=== PATIENT | female | born 1995 | race African-American/Black ===

== ENCOUNTER 2017-08-10 21:11 | Emergency (ER) | payer MEDICAID ==
[~2017-08-10] VITALS: Ht 162.6 cm; Wt 46.3 kg
[~2017-08-10 21:11] MED LIST: AMOX500T3; IBUP800T41
[2017-08-10 21:17] VITALS: BP 139/75
== END 2017-08-10 22:33 | disposition left against medical advice (07) ==
LOC: ER 21:11
DX: R51 Headache (principal); Z53.21 Procedure and treatment not carried out due to patient leaving prior to being seen by health care provider

== ENCOUNTER 2018-02-14 11:30 | Observation (INO) | payer MEDICAID ==
[~2018-02-14] VITALS: Ht 30.5 cm; Wt 0.5 kg
[2018-02-14] MEDS ORDERED: BETAMETHASONE ACET (6MG/ML) 5ML VIAL IM SCH (12:30)
[2018-02-14 12:31] LABS: Basophils # (auto) 0 uL; Basophils % (auto) 0.5 % (0.0-2.0); Eosinophils # (auto) 0.1 uL; Eosinophils % (auto) 0.8 % (0.0-7.0); Hemoglobin 11.1 g/dL (12.2-16.2); Lymphocytes # (auto) 1.7 uL; Lymphocytes % (auto) 19.6 % (10.0-50.0); Mean Corpuscular Hemoglobin 30.6 pg (28.0-32.0); Mean Corpuscular Hgb Conc. 34.5 g/dL (32.0-36.0); Mean Corpuscular Volume 88.7 fL (80.0-100.0); Monocytes # (auto) 0.8 uL; Monocytes % (auto) 9.4 % (0.0-12.0); Neutrophils # (auto) 5.9 uL; Neutrophils % (auto) 69.7 % (37.0-80.0); Nucleated Red Blood Cells % 0.2 %; Platelet Count (auto) 188 10^3/uL (140-450); Red Blood Cells 3.61 10^6/uL (4.0-5.20); Red Cell Distribution Width 16.6 % (11.8-14.3); White Blood Cell 8.5 10^3/uL (4.4-10.8)
[2018-02-14 12:37] LABS: Urine Bacteria NONE SEEN /hpf (None Seen); Urine Blood 1+ /uL (Negative); Urine Specific Gravity 1.014 (1.001-1.035); Urine WBC 4 /hpf (0 - 5)
[2018-02-14] MEDS ORDERED: BETAMETHASONE ACET (6MG/ML) 5ML VIAL ONE (12:44)
[2018-02-14] MEDS ORDERED: TERBUTALINE SULFATE 1 MG/ML 1ML VIAL SC ONE (12:44)
[2018-02-14] MEDS ORDERED: TERBUTALINE SULFATE 1 MG/ML 1ML VIAL SC SCH (12:45)
[2018-02-14 12:57] LABS: Albumin 2.4 g/dL (3.4-5.0); BUN/Creatinine Ratio 11.9; Bilirubin, Total 0.3 mg/dL (0.2-1.0); Calcium 8.9 mg/dL (8.5-10.1); Potassium 3.4 mmol/L (3.5-5.1); Total Protein 6.5 g/dL (6.4-8.2); Uric Acid 5.3 mg/dL (2.6-6.0)
[2018-02-14 13:03] LABS: INR 0.84 (0.9-1.15); Prothrombin Time 9.1 sec (9.27-12.13)
[2018-02-14] MEDS ORDERED: DOXY10TA OR (14:23)
[2018-02-14] MEDS ORDERED: PREN-153 PO (14:23)
[2018-02-14] MEDS ORDERED: FERR-20 PO (14:24)
[2018-02-14] MEDS ORDERED: NIFEdipine 10 MG CAP PO ONE (14:30)
== END 2018-02-14 15:30 | disposition home or self-care (01) | DRG 955 ==
LOC: LDRP 11:30
PROVIDERS: ADMIT Obstetrics & Gynecology; ATTEND Obstetrics & Gynecology
DX: O13.9 Gestational [pregnancy-induced] hypertension without significant proteinuria, unspecified trimester (principal); Z3A.00 Weeks of gestation of pregnancy not specified
CPT/HCPCS: 36415; 59025; 76805; 76818; 80053; 81001; 81002; 84550; 85025; 85610; 85730; 96372; G0378; J0702; J3105

== ENCOUNTER 2018-02-15 13:00 | Inpatient (IN) | payer MEDICAID ==
[~2018-02-15] VITALS: Ht 30.5 cm; Wt 0.5 kg
[~2018-02-15 13:00] MED LIST changes: -AMOX500T3; +DOXY10TA OR; +FERR-20 PO; -IBUP800T41; +PREN-153 PO
[2018-02-15] MEDS ORDERED: NIFEdipine 10 MG CAP PO ONE (13:30)
[2018-02-15] MEDS ORDERED: BETAMETHASONE ACET (6MG/ML) 5ML VIAL IM ONE (13:30)
[2018-02-15 14:07] LABS: Basophils # (auto) 0 uL; Basophils % (auto) 0.2 % (0.0-2.0); Eosinophils # (auto) 0 uL; Hematocrit 28.4 % (36.0-46.0); Hemoglobin 9.6 g/dL (12.2-16.2); Lymphocytes # (auto) 1.3 uL; Lymphocytes % (auto) 11.5 % (10.0-50.0); Mean Corpuscular Hemoglobin 29.8 pg (28.0-32.0); Mean Corpuscular Hgb Conc. 33.6 g/dL (32.0-36.0); Mean Corpuscular Volume 88.7 fL (80.0-100.0); Neutrophils # (auto) 9.1 uL; Neutrophils % (auto) 79.3 % (37.0-80.0); Nucleated Red Blood Cells % 0.3 %; Platelet Count (auto) 182 10^3/uL (140-450); Red Blood Cells 3.21 10^6/uL (4.0-5.20); Red Cell Distribution Width 16.6 % (11.8-14.3); White Blood Cell 11.4 10^3/uL (4.4-10.8)
[2018-02-15 14:27] LABS: Albumin 2.3 g/dL (3.4-5.0); BUN/Creatinine Ratio 9.5; Bilirubin, Total 0.2 mg/dL (0.2-1.0); Calcium 8.4 mg/dL (8.5-10.1); INR 0.87 (0.9-1.15); Partial Thromboplastin Time 27.4 sec (23.78-33.04); Potassium 3.5 mmol/L (3.5-5.1); Prothrombin Time 9.4 sec (9.27-12.13); Uric Acid 6.6 mg/dL (2.6-6.0)
[2018-02-15] MEDS ORDERED: NALBUPHINE HCL 10 MG/1ml INJECTION IV PRN (14:30)
[2018-02-15] MEDS ORDERED: WITCH HAZEL-GLYCERIN PAD TOP PRN (14:30)
[2018-02-15] MEDS ORDERED: LIDOCAINE 2% (LOCAL ANESTH.) PF 5ml SDV ID ONE (14:30)
[2018-02-15] MEDS ORDERED: DERMOPLAST 60ML BOTTLE TOP PRN (14:30)
[2018-02-15] MEDS ORDERED: PHISODERM TOP SOLN 240ML BTL TOP PRN (14:30)
[2018-02-15] MEDS ORDERED: METHYLERGONOVINE MALEATE 0.2 MG/ML AMP IM PRN (14:30)
[2018-02-15] MEDS ORDERED: CARBOPROST TROMETHAMINE 250 MCG/1ML VIAL IM PRN (14:30)
[2018-02-15 14:31] LABS: Urine Bacteria FEW /hpf (None Seen); Urine Blood 1+ /uL (Negative); Urine Mucus FEW (None Seen); Urine Specific Gravity 1.017 (1.001-1.035); Urine WBC 10 /hpf (0 - 5)
[2018-02-15] MEDS ORDERED: MAGNESIUM SULFATE 100 ML IV ONE (14:45)
[2018-02-15] MEDS ORDERED: MAGNESIUM SULFATE 40MG/ML 1,000 ML IV ONE (14:51)
[2018-02-15] MEDS ORDERED: PENICILLIN G POT 5MIL/D5 50ML 50 ML IV ONE (15:15)
[2018-02-15] MEDS: MAGNESIUM SULFATE 40MG/ML 1,000 ML IV SCH (15:20)
[2018-02-15] MEDS: SODIUM CHL 0.9% IV SCH ×2 (19:15→23:25)
[2018-02-15] MEDS: PENICILLIN POTASSIUM IV SCH ×2 (19:15→23:25)
[2018-02-15] MEDS ORDERED: hydrALAZINE HCL 20 MG/ML VL ONE (19:53)
[2018-02-15] MEDS: hydrALAZINE HCL 20 MG/ML VL IV PRN (19:57)
[2018-02-15] MEDS ORDERED: NIFEdipine 10 MG CAP ONE (21:00)
[2018-02-15] MEDS: NIFEdipine 10 MG CAP PO SCH ×2 (21:04→22:00)
[2018-02-15] MEDS: LACTATED RINGER'S 1,000 ML IV SCH (23:13)
[2018-02-15] MEDS ORDERED: LACT. RINGERS/OXYTOCIN 20UNITS 1,000 ML IV SCH (23:13)
[2018-02-16] VITALS (9 sets, daily range): BP systolic 137–159; BP diastolic 88–101
[2018-02-16] MEDS ORDERED: fentaNYL CITRATE 100 MCG/2 ML VL ONE ×3 (00:29→16:02)
[2018-02-16] MEDS ORDERED: NALOXONE HCL 0.4 MG/ML VIAL IV ONE ×2 (00:30→02:00)
[2018-02-16] MEDS ORDERED: fentaNYL CITRATE 100 MCG/2 ML VL IV ONE ×2 (00:30→02:00)
[2018-02-16] MEDS ORDERED: ePHEDrine SULFATE 50 MG/ML AMP IV ONE ×2 (00:30→02:00)
[2018-02-16] MEDS ORDERED: fentaNYL W ROPIVACAINE 150 ML EPI ONE (00:30)
[2018-02-16] MEDS ORDERED: LIDOCAINE HCL 2 %PF INJ 10ML AMP IJ ONE ×2 (00:30→15:48)
[2018-02-16] MEDS ORDERED: fentaNYL W ROPIVACAINE 150 ML EPI SCH ×2 (00:30→02:00)
[2018-02-16] MEDS ORDERED: LIDOCAINE 2% (LOCAL ANESTH.) PF 5ml SDV ONE (00:31)
[2018-02-16] MEDS ORDERED: hydrALAZINE HCL 20 MG/ML VL ONE (00:42)
[2018-02-16] MEDS ORDERED: SODIUM CHLORIDE 0.9% 500 ML IV PRN (01:51)
[2018-02-16] MEDS: SODIUM CHL 0.9% IV SCH ×3 (03:20→12:30)
[2018-02-16] MEDS: PENICILLIN POTASSIUM IV SCH ×3 (03:20→12:30)
[2018-02-16] MEDS: NIFEdipine 10 MG CAP PO SCH ×3 (06:22→22:01)
[2018-02-16] MEDS: LACTATED RINGER'S 1,000 ML IV SCH ×2 (07:13→19:15)
[2018-02-16] MEDS: MAGNESIUM SULFATE 40MG/ML 1,000 ML IV SCH (10:42)
[2018-02-16] MEDS: hydrALAZINE HCL 20 MG/ML VL IV PRN (11:24)
[2018-02-16] MEDS ORDERED: PHENYLEPHRINE HCL 10 MG/ML VL ONE (16:02)
[2018-02-16] MEDS ORDERED: ceFAZolin 1GM VL ONE (16:02)
[2018-02-16] MEDS ORDERED: ePHEDrine SULFATE 50 MG/ML AMP ONE (16:02)
[2018-02-16] MEDS ORDERED: OXYTOCIN 10 UNIT/ML 10ML VIAL ONE (16:03)
[2018-02-16] MEDS ORDERED: MORPHINE SULF INJ 2 MG/ML SYRINGE 1ML ONE ×3 (16:42→17:20)
[2018-02-16] MEDS: MORPHINE SULF INJ 2 MG/ML SYRINGE 1ML IV PRN ×4 (16:45→18:00)
[2018-02-16] MEDS ORDERED: ONDANSETRON HCL 4 MG/2 ML VIAL IV PRN (16:45)
[2018-02-16] MEDS ORDERED: HYDROmorphone HCL 2 MG/ML VL IV PRN (16:45)
[2018-02-16] MEDS ORDERED: METOCLOPRAMIDE HCL 5MG/ml INJ 2ml VIAL IV ONE (17:15)
[2018-02-16] MEDS ORDERED: NALOXONE HCL 0.4 MG/ML VIAL IV PRN (17:15)
[2018-02-16] MEDS ORDERED: ONDANSETRON HCL 4 MG/2 ML VIAL IV ONE (17:15)
[2018-02-16] MEDS ORDERED: ALBUTEROL SULF 2.5 MG/0.5ML(0.5%) NEB SOLN NEB ONE (17:45)
[2018-02-16] MEDS ORDERED: ALBUTEROL SULF 2.5 MG/0.5ML(0.5%) NEB SOLN ONE (17:49)
[2018-02-16] MEDS: KETOROLAC TROMETH 30 MG/ML 1ML VIAL IV SCH ×2 (18:00→23:53)
[2018-02-16] MEDS ORDERED: FUROSEMIDE 20 MG/2 ML VIAL IV ONE ×2 (18:10→20:00)
[2018-02-16] MEDS ORDERED: FUROSEMIDE 20 MG/2 ML VIAL ONE (18:12)
[2018-02-16] MEDS: ALBUTEROL SULF 2.5 MG/0.5ML(0.5%) NEB SOLN NEB SCH (22:00)
[2018-02-16] MEDS: ceFAZolin 1GM/100ML 50 ML IV SCH (23:53)
[2018-02-17] MEDS: LACTATED RINGER'S 1,000 ML IV SCH ×3 (00:44→16:44)
[2018-02-17] MEDS: ALBUTEROL SULF 2.5 MG/0.5ML(0.5%) NEB SOLN NEB SCH ×2 (02:00→18:00)
[2018-02-17 03:00] VITALS: BP 122/75
[2018-02-17] MEDS: NIFEdipine 10 MG CAP PO SCH (06:01)
[2018-02-17] MEDS: KETOROLAC TROMETH 30 MG/ML 1ML VIAL IV SCH (06:01)
[2018-02-17 06:40] VITALS: BP 119/77
[2018-02-17 07:05] LABS: Basophils # (auto) 0 uL; Basophils % (auto) 0.2 % (0.0-2.0); Eosinophils # (auto) 0 uL; Eosinophils % (auto) 0.1 % (0.0-7.0); Hematocrit 28.7 % (36.0-46.0); Hemoglobin 9.8 g/dL (12.2-16.2); Lymphocytes % (auto) 15.1 % (10.0-50.0); Mean Corpuscular Hemoglobin 30.5 pg (28.0-32.0); Mean Corpuscular Volume 89.8 fL (80.0-100.0); Monocytes % (auto) 7.7 % (0.0-12.0); Neutrophils # (auto) 10.2 uL; Neutrophils % (auto) 76.9 % (37.0-80.0); Nucleated Red Blood Cells % 0.1 %; Platelet Count (auto) 189 10^3/uL (140-450); Red Cell Distribution Width 16.7 % (11.8-14.3); White Blood Cell 13.3 10^3/uL (4.4-10.8)
[2018-02-17] MEDS: ceFAZolin 1GM/100ML 50 ML IV SCH ×2 (07:50→16:00)
[2018-02-17] MEDS ORDERED: HYDROcodone-ACET 5/325MG TAB PO PRN ×2 (08:00)
[2018-02-17] MEDS ORDERED: BISACODYL 10 MG RECT SUPP PR PRN (08:00)
[2018-02-17] MEDS: FERROUS SULFATE 325 MG TAB PO SCH ×2 (10:10→22:22)
[2018-02-17] MEDS: DOCUSATE CALCIUM 240 MG CAP PO SCH (10:10)
[2018-02-17] MEDS: DOCUSATE SOD 100 MG CAP PO SCH ×2 (10:10→22:22)
[2018-02-17 11:00] VITALS: BP 143/99
[2018-02-17 11:26] LABS: RPR Non Reactive (Non Reactive)
[2018-02-17] MEDS: SIMETHICONE 80 MG CHEWABLE TABLET PO SCH ×3 (11:52→22:22)
[2018-02-17] MEDS ORDERED: LABETALOL HCL 200 MG TAB ONE (11:57)
[2018-02-17] MEDS ORDERED: LABETALOL HCL 200 MG TAB PO ONE (12:00)
[2018-02-17] MEDS: IBUPROFEN 800 MG TAB PO PRN ×2 (14:51→23:25)
[2018-02-17 15:00] VITALS: BP 134/94
[2018-02-17 19:00] VITALS: BP 147/85
[2018-02-17] MEDS: LABETALOL HCL 200 MG TAB PO SCH (22:22)
[2018-02-17 22:30] VITALS: BP 155/95
[2018-02-18] MEDS: LACTATED RINGER'S 1,000 ML IV SCH (00:44)
[2018-02-18] MEDS: ALBUTEROL SULF 2.5 MG/0.5ML(0.5%) NEB SOLN NEB SCH ×4 (02:00→18:00)
[2018-02-18 03:00] VITALS: BP 155/78
[2018-02-18] MEDS: SIMETHICONE 80 MG CHEWABLE TABLET PO SCH ×4 (05:50→22:45)
[2018-02-18 07:10] VITALS: BP 144/90
[2018-02-18] MEDS: LABETALOL HCL 200 MG TAB PO SCH ×2 (09:47→22:55)
[2018-02-18] MEDS: DOCUSATE SOD 100 MG CAP PO SCH ×2 (09:47→22:45)
[2018-02-18] MEDS: FERROUS SULFATE 325 MG TAB PO SCH ×2 (09:47→22:45)
[2018-02-18] MEDS: DOCUSATE CALCIUM 240 MG CAP PO SCH (09:48)
[2018-02-18 10:47] VITALS: BP 155/95
[2018-02-18] MEDS: IBUPROFEN 800 MG TAB PO PRN (11:47)
[2018-02-18 15:00] VITALS: BP 145/90
[2018-02-18 18:41] VITALS: BP 155/93
[2018-02-18] MEDS ORDERED: LABETALOL HCL 200 MG TAB ONE (22:59)
[2018-02-18 23:00] VITALS: BP 150/98
[2018-02-19] MEDS: ALBUTEROL SULF 2.5 MG/0.5ML(0.5%) NEB SOLN NEB SCH ×3 (02:00→10:00)
[2018-02-19 02:21] VITALS: BP 150/87
[2018-02-19 03:00] VITALS: BP 150/97
[2018-02-19] MEDS: SIMETHICONE 80 MG CHEWABLE TABLET PO SCH (06:45)
[2018-02-19 07:00] VITALS: BP 160/99
[2018-02-19] MEDS: IBUPROFEN 800 MG TAB PO PRN (07:15)
[2018-02-19] MEDS: DOCUSATE SOD 100 MG CAP PO SCH (10:00)
[2018-02-19] MEDS: LABETALOL HCL 200 MG TAB PO SCH (10:00)
[2018-02-19] MEDS: DOCUSATE CALCIUM 240 MG CAP PO SCH (10:00)
[2018-02-19] MEDS: FERROUS SULFATE 325 MG TAB PO SCH (10:00)
[2018-02-19 11:00] VITALS: BP 125/82
== END 2018-02-19 11:10 | disposition home or self-care (01) | DRG 540 ==
LOC: OBSVTOIN 13:00 → LDRP 13:00
PROVIDERS: ADMIT Specialist; ATTEND Specialist
PROC: 10D00Z1 Extraction of Products of Conception, Low, Open Approach (ICD-10-PCS; 2018-02-16)
PROC: 4A0HXCZ Measurement of Products of Conception, Cardiac Rate, External Approach (ICD-10-PCS; principal; 2018-02-16 15:51)
DX: O14.94 Unspecified pre-eclampsia, complicating childbirth (principal); O60.14X0 Preterm labor third trimester with preterm delivery third trimester, not applicable or unspecified; O99.62 Diseases of the digestive system complicating childbirth; K21.9 Gastro-esophageal reflux disease without esophagitis; O13.4 Gestational [pregnancy-induced] hypertension without significant proteinuria, complicating childbirth; O76 Abnormality in fetal heart rate and rhythm complicating labor and delivery; O62.0 Primary inadequate contractions; Z3A.35 35 weeks gestation of pregnancy; Z37.0 Single live birth; Z82.49 Family history of ischemic heart disease and other diseases of the circulatory system
CPT/HCPCS: 36415; 51702; 59025; 71045; 80053; 81001; 81002; 82962; 83735; 84550; 85025; 85610; 85730; 86592; 86850; 86900; 86901; 94640; 94760; 96361; 96365; 96366; 96374; 96375; J0690; J1885; J2540; J2590; J3010; J7060

== ENCOUNTER 2018-02-20 20:06 | Inpatient (IN) | payer MEDICAID ==
[~2018-02-20] VITALS: Ht 162.6 cm; Wt 62.5 kg
[2018-02-20 21:21] LABS: Albumin 2.4 g/dL (3.4-5.0); BUN/Creatinine Ratio 8.1; Calcium 8.6 mg/dL (8.5-10.1); Potassium 4.4 mmol/L (3.5-5.1)
[2018-02-20 21:24] LABS: Bilirubin, Total 0.3 mg/dL (0.2-1.0); Total Protein 6.6 g/dL (6.4-8.2)
[2018-02-20 21:31] LABS: Basophils # (auto) 0.1 uL; Eosinophils # (auto) 0.1 uL; Hematocrit 32.8 % (36.0-46.0); Lymphocytes # (auto) 1.5 uL; Lymphocytes % (auto) 14.1 % (10.0-50.0); Mean Corpuscular Hemoglobin 30.6 pg (28.0-32.0); Mean Corpuscular Hgb Conc. 33.5 g/dL (32.0-36.0); Mean Corpuscular Volume 91.1 fL (80.0-100.0); Monocytes # (auto) 0.6 uL; Monocytes % (auto) 5.5 % (0.0-12.0); Neutrophils # (auto) 8.4 uL; Neutrophils % (auto) 78.4 % (37.0-80.0); Nucleated Red Blood Cells % 0.3 %; Platelet Count (auto) 315 10^3/uL (140-450); Red Cell Distribution Width 16.7 % (11.8-14.3); White Blood Cell 10.7 10^3/uL (4.4-10.8)
[2018-02-21] MEDS ORDERED: cloNIDine HCL 0.1 MG TAB PO ONE (03:00)
[2018-02-21] MEDS ORDERED: IOHEXOL 350 MG/ML 100ML IJ ONE (03:15)
[2018-02-21 03:27] LABS: Urine Bacteria FEW /hpf (None Seen); Urine Blood 1+ /uL (Negative); Urine Hyaline Cast FEW /lpf (0 - 2); Urine Specific Gravity 1.012 (1.001-1.035); Urine WBC 16 /hpf (0 - 5)
[2018-02-21 03:28] LABS: Alcohol, Urine < 3.0 mg/dL (0-5); Amphetamine Screen, Urine NEGATIVE (NEGATIVE); Barbiturate Scree,Urine NEGATIVE (NEGATIVE); Benzodiazephine Screen, Urine NEGATIVE (NEGATIVE); Cannabinoid Screen, Urine NEGATIVE (NEGATIVE); Cocaine Screen, Urine NEGATIVE (NEGATIVE); Opiate Scree,Urine NEGATIVE (NEGATIVE); Phencyclidine Screen, Urine NEGATIVE (NEGATIVE)
[2018-02-21] MEDS ORDERED: FUROSEMIDE 20 MG/2 ML VIAL IV ONE (05:00)
[2018-02-21 05:02] LABS: INR 0.87 (0.9-1.15); Prothrombin Time 9.4 sec (9.27-12.13)
[2018-02-21] MEDS ORDERED: FUROSEMIDE 40 MG/4 ML VIAL IV ONE (09:00)
[2018-02-21] MEDS ORDERED: TEMAZEPAM 15 MG CAP PO PRN (09:15)
[2018-02-21] MEDS ORDERED: DOCUSATE SOD 100 MG CAP PO PRN (09:15)
[2018-02-21] MEDS ORDERED: NITROGLYCERIN 0.4 MG SL TAB SL PRN (09:15)
[2018-02-21] MEDS ORDERED: ACETAMINOPHEN 325 MG TAB PO PRN (09:15)
[2018-02-21] MEDS ORDERED: MORPHINE SULFATE 8mg/ml INJ SDV IV PRN (09:15)
[2018-02-21] MEDS ORDERED: ONDANSETRON HCL 4 MG/2 ML VIAL IV PRN (09:15)
[2018-02-21] MEDS ORDERED: HYDROcodone-ACET 5/325MG TAB PO PRN (09:15)
[2018-02-21] MEDS: MULTIPLE VITAMIN TAB PO SCH (09:28)
[2018-02-21] MEDS: ASCORBIC ACID 500 MG TAB PO SCH ×2 (09:28→22:00)
[2018-02-21] MEDS: cefTRIAXone 1GM/10ml IVPUSH 10 ML IV SCH (09:28)
[2018-02-21] MEDS: POTASSIUM CHL 10 Meq TABLET PO SCH ×2 (09:28→20:57)
[2018-02-21] MEDS ORDERED: ZINC SULFATE 220 MG CAP PO SCH (10:00)
[2018-02-21] MEDS: ZINC SULFATE 220 MG CAP PO SCH (10:06)
[2018-02-21] MEDS ORDERED: cloNIDine HCL 0.1 MG TAB PO PRN (11:15)
[2018-02-21] MEDS ORDERED: NIFEdipine ER 30 MG TAB PO SCH ×2 (11:30→18:00)
[2018-02-21] MEDS: BOOST PLUS 8 ounce PO SCH ×2 (11:48→18:00)
[2018-02-21] MEDS: SODIUM CHLOR 0.9% PF (SALINE LOCK) 10ML VIAL/SYR IV SCH ×2 (14:00→22:00)
[2018-02-21 14:28] LABS: Hepatitis B Surface Antigen Negative (Negative); Hepatitis C Antibody Negative (Negative)
[2018-02-21 17:00] VITALS: BP 136/86
[2018-02-21] MEDS ORDERED: FUROSEMIDE 40 MG/4 ML VIAL IV SCH (18:00)
[2018-02-21 22:00] VITALS: BP 153/86
[2018-02-21] MEDS ORDERED: LABETALOL HCL 200 MG TAB PO SCH (22:00)
[2018-02-21] MEDS: LABETALOL HCL 200 MG TAB PO SCH (22:00)
[2018-02-22 05:00] VITALS: BP 159/99
[2018-02-22] MEDS: SODIUM CHLOR 0.9% PF (SALINE LOCK) 10ML VIAL/SYR IV SCH ×3 (05:48→22:09)
[2018-02-22 06:19] LABS: Albumin 2.3 g/dL (3.4-5.0); Basophils # (auto) 0 uL; Basophils % (auto) 0.2 % (0.0-2.0); Bilirubin, Total 0.2 mg/dL (0.2-1.0); Calcium 8.5 mg/dL (8.5-10.1); Eosinophils # (auto) 0.1 uL; Eosinophils % (auto) 1.6 % (0.0-7.0); Hematocrit 33.8 % (36.0-46.0); Hemoglobin 11.2 g/dL (12.2-16.2); Lymphocytes # (auto) 1.5 uL; Lymphocytes % (auto) 17.9 % (10.0-50.0); Mean Corpuscular Hemoglobin 29.8 pg (28.0-32.0); Mean Corpuscular Hgb Conc. 33.2 g/dL (32.0-36.0); Mean Corpuscular Volume 89.6 fL (80.0-100.0); Monocytes # (auto) 0.6 uL; Monocytes % (auto) 7.1 % (0.0-12.0); Neutrophils # (auto) 6.3 uL; Neutrophils % (auto) 73.2 % (37.0-80.0); Phosphorus 4.2 mg/dL (2.5-4.90); Platelet Count (auto) 337 10^3/uL (140-450); Potassium 4.4 mmol/L (3.5-5.1); Red Blood Cells 3.78 10^6/uL (4.0-5.20); Red Cell Distribution Width 16.5 % (11.8-14.3); Total Protein 6.5 g/dL (6.4-8.2); White Blood Cell 8.6 10^3/uL (4.4-10.8)
[2018-02-22] MEDS: BOOST PLUS 8 ounce PO SCH ×3 (08:00→17:53)
[2018-02-22 08:59] VITALS: BP 149/101
[2018-02-22] MEDS: cefTRIAXone 1GM/10ml IVPUSH 10 ML IV SCH (09:06)
[2018-02-22] MEDS: ASCORBIC ACID 500 MG TAB PO SCH ×2 (09:08→22:09)
[2018-02-22] MEDS: POTASSIUM CHL 10 Meq TABLET PO SCH ×2 (09:08→22:09)
[2018-02-22] MEDS: MULTIPLE VITAMIN TAB PO SCH (09:08)
[2018-02-22] MEDS: LABETALOL HCL 200 MG TAB PO SCH ×2 (09:09→22:09)
[2018-02-22] MEDS ORDERED: FUROSEMIDE 40 MG/4 ML VIAL IV SCH (10:00)
[2018-02-22 12:51] VITALS: BP 142/98
[2018-02-22] MEDS: ZINC SULFATE 220 MG CAP PO SCH (15:18)
[2018-02-22 17:00] VITALS: BP 143/93
[2018-02-22 22:00] VITALS: BP 150/87
[2018-02-23 05:00] VITALS: BP 141/76
[2018-02-23] MEDS: SODIUM CHLOR 0.9% PF (SALINE LOCK) 10ML VIAL/SYR IV SCH (06:09)
[2018-02-23 08:00] VITALS: BP 143/93
[2018-02-23 09:00] VITALS: BP 143/93
[2018-02-23] MEDS: ZINC SULFATE 220 MG CAP PO SCH (10:00)
[2018-02-23] MEDS ORDERED: HCTZ 25 MG TAB PO SCH (10:00)
[2018-02-23] MEDS: BOOST PLUS 8 ounce PO SCH ×2 (11:55→12:12)
[2018-02-23] MEDS: MULTIPLE VITAMIN TAB PO SCH (11:57)
[2018-02-23] MEDS: POTASSIUM CHL 10 Meq TABLET PO SCH (11:57)
[2018-02-23] MEDS: ASCORBIC ACID 500 MG TAB PO SCH (11:58)
[2018-02-23] MEDS: LABETALOL HCL 200 MG TAB PO SCH (11:58)
[2018-02-23 12:14] VITALS: BP 143/93
[2018-02-23 12:30] VITALS: BP 143/93
[2018-02-24 11:01] LABS: RPR Non Reactive (Non Reactive)
== END 2018-02-23 12:46 | disposition home or self-care (01) | DRG 561 ==
LOC: ER 20:06 → TELE 20:07 → TELE-WESTW 02-21 13:33
PROVIDERS: ADMIT Internal Medicine; ATTEND Internal Medicine
DX: O14.15 Severe pre-eclampsia, complicating the puerperium (principal); I31.3 Pericardial effusion (noninflammatory); E44.0 Moderate protein-calorie malnutrition; O86.20 Urinary tract infection following delivery, unspecified; O99.43 Diseases of the circulatory system complicating the puerperium; I11.0 Hypertensive heart disease with heart failure; I50.30 Unspecified diastolic (congestive) heart failure; I16.0 Hypertensive urgency; O90.81 Anemia of the puerperium; O25.3 Malnutrition in the puerperium; O99.53 Diseases of the respiratory system complicating the puerperium; D63.8 Anemia in other chronic diseases classified elsewhere; J98.11 Atelectasis; Z68.23 Body mass index [BMI] 23.0-23.9, adult; E88.09 Other disorders of plasma-protein metabolism, not elsewhere classified
CPT/HCPCS: 36415; 51702; 71045; 71275; 76775; 80053; 80307; 81001; 82306; 83880; 84100; 84550; 85025; 85379; 85610; 85730; 86038; 86160; 86592; 86803; 87081; 87086; 87340; 93005; 93306; 96374; 96375; 96376

== ENCOUNTER 2024-09-26 08:51 | Emergency (ER) | payer MEDICAID ==
[~2024-09-26] VITALS: Ht 160 cm; Wt 59.8 kg
[~2024-09-26 08:51] MED LIST changes: -DOXY10TA OR; -FERR-20 PO; +FERR325T24 PO; -PREN-153 PO; +PREN1TAB71 PO
[2024-09-26 09:48] VITALS: BP 119/59; PULSE 79; RESP 19; TEMP 99.9; O2SAT 99
--- NOTE | 2024-09-26 09:53 | ED.PDOC ---
History of Present Illness HPI Comments 29 year old female patient presents to the ER for head started yesterday. Patient also complaining of intermittent dizziness for 3 weeks. Patient denies any exacerbating or alleviating factors for the headache with the dizziness. Patient states that with the dizziness she is standing and feels like everything is kind of organs motion. Patient denies any near syncopal event. Patient states that she has intermittent nausea. Patient denies any history migraines. Patient denies any photophobia or phonophobia. Patient denies any injury or trauma. Patient's headache is diffuse but greater in the frontal area. Chief Complaint: Headache Time Seen by MD: 09:31 Primary Care Provider: none Reviewed Notes: Nurses Notes, Medications Allergies: Coded Allergies: NO KNOWN ALLERGIES (Unverified , 01/31/12) Home Meds Active Scripts Ondansetron HCl (Ondansetron) 4 Mg Tab, 4 MG PO BID PRN for 14 Days, #28 TAB 0 Refills Prov:JERMAN BERRIOS [employer] OPERATOR 09/26/24 Meclizine Hcl (Meclizine Hcl) 12.5 Mg Tab, 1 TAB PO BID PRN for 14 Days, #28 TAB 0 Refills Prov:JERMAN BERRIOS [employer] OPERATOR 09/26/24 Ibuprofen (Ibuprofen) 600 Mg Tab, 1 TAB PO TID PRN for 30 Days, #90 TAB 0 Refills Prov:JERMAN BERRIOS [employer] OPERATOR 09/26/24 Reported Medications Ferrous Sulfate (Ferrous Sulfate) 325 Mg Tab, 325 MG PO BIDWM for 30 Days, MG 02/14/18 Vit W/ Ferrous Fumara (PNV PLUS MULTIVI) Plus Tab, 1 TAB PO, TAB 02/14/18 Discontinued Scripts Meclizine Hcl (Meclizine Hcl) 12.5 Mg Tab, 1 TAB PO BID PRN for 10 Days, #20 TAB 0 Refills Prov:JERMAN BERRIOS [employer] BR[employer] OPERATOR 09/26/24 Ibuprofen (Ibuprofen) 600 Mg Tab, 1 TAB PO TID PRN for 30 Days, #90 TAB 0 Refills Prov:JERMAN BERRIOS [employer] BR[employer] OPERATOR 09/26/24 Information Source: Patient Mode of Arrival: Ambulatory Past Medical History PAST MEDICAL HISTORY: Denies Surgical History: Denies all surgeries CHANNELER OUTSOLE History: No Pertinent CHANNELER OUTSOLE History Family History Family History: Unobtainable Social History Smoker: Non-Smoker Alcohol: Denies ETOH Use Drugs: Denies Drug Use Lives In: Home Constitutional: denies: chills, diaphoresis, fatigue, fever, malaise, sweats, weakness, others EENTM: denies: blurred vision, double vision, ear bleeding, ear discharge, ear drainage, ear pain, ear ringing, eye pain, eye redness, hearing loss, mouth pain, mouth swelling, nasal discharge, nose bleeding, nose congestion, nose pain, photophobia, tearing, throat pain, throat swelling, voice changes, others Respiratory: denies: cough, hemoptysis, orthopnea, SOB at rest, shortness of breath, SOB with excertion, stridor, wheezing, others Cardiovascular: denies: chest pain, dizzy spells, diaphoresis, Dyspnea on exertion, edema, irregular heart beat, left arm pain, lightheadedness, palpitations, PND, syncope, others Gastrointestinal: denies: abdomen distended, abdominal pain, blood streaked bowels, constipated, diarrhea, dysphagia, difficulty swallowing, hematemesis, melena, nausea, poor appetite, poor fluid intake, rectal bleeding, rectal pain, vomiting, others Neurological: reports: dizziness, headache Musculoskeletal: denies: back pain, gout, joint pain, joint swelling, muscle pa in, muscle stiffness, neck pain, others Integumetry: denies: bruises, change in color, change in hair/nails, dryness, laceration, lesions, lumps, rash, wounds, others Allergic/Immunocompromised: denies: Difficulty Healing, Frequent Infections, Hives, Itching, others Hematologic/Lymphatic: denies: anemia, blood clots, easy bleeding, easy bruising, swollen glands, others Endocrine: denies: excessive hunger, excessive sweating, excessive thirst, excessive urination, flushing, intolerance to cold, intolerance to heat, unexplained weight gain, unexplained weight loss, others Psychiatric: denies: anxiety, bipolar disorder, depression, hopeless, panic disorder, schizophrenia, sleepless, suicidal, others All Other Systems: Reviewed and Negative Physical Exam General Appearance: No Apparent Distress, Normal HEENT: Normal ENT Inspection, Pharynx Normal, TMs Normal Neck: Full Range of Motion, Non-Tender, Normal, Normal Inspection Respiratory: Chest Non-Tender, Lungs Clear, No Accessory Muscle Use, No Respiratory Distress, Normal Breath Sounds Cardiovascular: No Edema, No JVD, No Murmur, No Gallop, Normal Peripheral Pulses, Regular Rate/Rhythm Breast Exam: Deferred Gastrointestinal: No Organomegaly, Non Tender, No Pulsatile Mass, Normal Bowel Sounds, Soft Genitalia: Deferred Pelvic: Deferred Rectal: Deferred Extremities: No calf tenderness, Normal capillary refill, Normal inspection, Normal range of motion, Non-tender, No pedal edema Musculoskeletal : Apperance: Normal Neurologic: Alert, 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 Was a procedure done?: No Differential Dx Considerations may include: Migraines, tension headache, vertigo X-Ray, Labs, Meds, VS Vital Signs Date Time Temp Pulse Resp B/P (MAP) Pulse Ox O2 Delivery O2 Flow Rate FiO2 09/26/24 09:48 99.9 79 19 119/59 (79) 99 99.9 09/26/24 09:48 79 19 99 Room Air 09/26/24 09:08 100.2 76 16 124/34 (64) 100 Current Medications Medications (Trade) Dose Ordered Sig/Yanna Route Start Time Stop Time Status Last Admin Ketorolac Tromethamine (Toradol Injection) 60 mg ONCE ONCE IM 09/26/24 10:00 09/26/24 10:07 DC 09/26/24 10:16 PATIENT: JHONATAN VELASQUEZT: [id number]: [id number] : 1995 LOC: ER ROOM / BED: / AGE / SEX: 29 / F ADM STATUS: REG ER SERVICE [id number] ORDERING PHYSICIAN: JERMAN BERRIOS PROCEDURE(s): HWOCT - HEAD WITHOUT CONTRAST REASON: worst headache of life, dizziness ORDER NUMBER(s): [id number], ACCESSION NUMBER(s): [id number] EXAM: CT HEAD WITHOUT CONTRAST INDICATION: worst headache of life, dizziness TECHNIQUE: CT of the head without intravenous contrast. Coronal and sagittal reformatted images are submitted. Radiation Dose : 1. Head: CT Dose: CTDI volume is 53.82 mGy. Dose-length product is 1060.69 mGy*cm The dose indicators for CT are the volume Computed Tomography (CT) Dose Index (CTDIvol) and the Dose Length Product (DLP), and are measured in units of mGy and mGy-cm, respectively. These indicators are not patient dose, but values generated from the CT scanner acquisition factors. The report includes radiation exposure data for exposures received during this examination. All CT scans at this medical facility are performed using dose modulation techniques as appropriate to a performed exam including the following: Automated exposure control was utilized; adjustment of the MA and/or KV according to patient size; and use of iterative reconstruction technique. COMPARISON: None FINDINGS: There is no evidence of acute intracranial hemorrhage, extra-axial collection, mass effect, midline shift, herniation or hydrocephalus. The ventricles, sulci and cisterns are age appropriate. The wiggins-white differentiation is intact. The visualized paranasal sinuses and mastoid air cells are clear. No depressed calvarial fracture. The surrounding soft tissues are unremarkable. IMPRESSION: 1. No evidence of acute intracranial abnormality. ATED BY: STANISLAW VEGA MD DICTATED DATE/TIME: 09/26/24 1010 SIGNED BY: STANISLAW VEGA MD SIGNED DATE/TIME: 09/26/24 1010 CC: X-Ray, Labs, Meds, VS Comment Patient advised to take the Zofran and meclizine as needed. Patient advised to increase water intake and to ensure that she is getting enough electrolytes. Patient to follow a healthy diet. Patient to follow up with her primary care physician for possible referral to a neurologist if dizziness headaches continue. Patient advised that CT scan was within normal limits. On re-evaluation patient has symptomatic improvement. Patient is stable for discharge at this time. All test results and diagnostic imaging have been interpreted. All diagnostic findings, discharge care, and education instruction provided to the patient. Follow-up with PCP in 2-3 days Patient verbalized understanding, discharge instructions and agrees to treatment plan Vital signs are stable Patient is ambulatory Patient advised of which symptoms necessitate a return visit to the emergency room. Patient to return emergency room for any new worsening symptoms. Patient is aware that the purpose of this visit is for an acute medical emergency requiring emergent stabilization. Chronic conditions, including malignancies have not been ruled out. Patient is instructed to follow up with PCP as directed for continued care and workup. If unable to arrange follow up, patient is to return to the emergency room for reassessment. Patient was given verbal and written discharge instructions and acknowledges understanding Time of 1ST Reevaluation: 10:49 Reevaluation 1ST: Improved Patient Education/Counseling: Diagnosis, Treatment, Prognosis Family Education/Counseling: Diagnosis, Treatment, Prognosis Departure 1 Departure Time of Disposition: 10:54 Impression: Primary Impression: Headache Qualified Codes: G44.52 - New daily persistent headache (ndph) Additional Impression: Dizziness Disposition: HOME / SELF CARE / HOMELESS Condition: Stable e-Prescriptions Ondansetron HCl (Ondansetron) 4 Mg Tab 4 MG PO BID PRN for 14 Days, #28 TAB 0 [facility]24 Meclizine Hcl (Meclizine Hcl) 12.5 Mg Tab 1 TAB PO BID PRN for 14 Days, #28 TAB 0 [facility] 09/26/24 Ibuprofen (Ibuprofen) 600 Mg Tab 1 TAB PO TID PRN for 30 Days, #90 TAB 0 Refills Prov: KHANG BERRIOSANNE AIR BRUSH OPERATOR 09/26/24 Discharged With: Self, Relative (Mother) Critical Care Note Critical Care Time?: No Stability Stability form required: No Heart Score Heart Score: Heart Score Response (Comments) Value History N/A 0 EKG N/A 0 Age N/A 0 Risk Factors N/A 0 Troponin N/A 0 Total 0 [facility] Sep 26, 2024 09:52
--- NOTE | 2024-09-26 10:12 | DVH ---
EXAM: CT HEAD WITHOUT CONTRAST INDICATION: worst headache of life, dizziness TECHNIQUE: CT of the head without intravenous contrast. Coronal and sagittal reformatted images are submitted. Radiation Dose : 1. Head: CT Dose: CTDI volume is 53.82 mGy. Dose-length product is 1060.69 mGy*cm The dose indicators for CT are the volume Computed Tomography (CT) Dose Index (CTDIvol) and the Dose Length Product (DLP), and are measured in units of mGy and mGy-cm, respectively. These indicators are not patient dose, but values generated from the CT scanner acquisition factors. The report includes radiation exposure data for exposures received during this examination. All CT scans at this medical facility are performed using dose modulation techniques as appropriate to a performed exam including the following: Automated exposure control was utilized; adjustment of the MA and/or KV according to patient size; and use of iterative reconstruction technique. COMPARISON: None FINDINGS: There is no evidence of acute intracranial hemorrhage, extra-axial collection, mass effect, midline s hift, herniation or hydrocephalus. The ventricles, sulci and cisterns are age appropriate. The wiggins-white differentiation is intact. The visualized paranasal sinuses and mastoid air cells are clear. No depressed calvarial fracture. The surrounding soft tissues are unremarkable. IMPRESSION: 1. No evidence of acute intracranial abnormality.
[2024-09-26] MEDS: KETOROLAC TROMETH 60MG/2ML VIAL IM ONE (10:16)
[2024-09-26] MEDS ORDERED: MECL12.586 PO (10:50)
[2024-09-26] MEDS ORDERED: IBUP-1454 PO (10:50)
[2024-09-26] MEDS ORDERED: ZOFR4T PO (10:50)
[2024-09-26] MEDS ORDERED: ONDA-155 PO (11:01)
== END 2024-09-26 10:57 | disposition home or self-care (01) ==
LOC: ER 08:51
DX: R42 Dizziness and giddiness (principal); R51.9 Headache, unspecified
CPT/HCPCS: 70450; 96372; 99285; J1885